=== PATIENT | male | born 1980 | race Hispanic/Latino ===

== ENCOUNTER 2025-01-30 02:21 | Emergency (ER) | payer OTHER ==
[~2025-01-30] VITALS: Ht 175.3 cm; Wt 76.4 kg
[2025-01-30] MEDS ORDERED: KETOROLAC TROMETHAMINE 15 MG/ML VIAL IV ONE (02:45)
[2025-01-30] MEDS ORDERED: CYCLOBENZAPRINE HCL 10 MG TAB PO ONE (02:45)
[2025-01-30] MEDS ORDERED: DIPHENOXYLATE/ATROPINE 1 EA TAB PO ONE (02:45)
[2025-01-30 02:50] LABS: BASOPHILS 0.3 % (0.2-1.2); EOSINOPHILS 0.1 % (0.8-7.0); LYMPHOCYTES 20.4 % (21.8-53.1); MCH 30.4 PG (25.7-32.2); MCHC 34.9 g/dL (32.3-36.5); MCV 87.0 fL (79.0-92.2); MONOCYTES 10.3 % (5.3-12.2); NEUTROPHILS 68.8 % (34.0-67.9); RBC 5.07 M/uL (4.63-6.08)
[2025-01-30 03:16] LABS: ALT (SGPT) 111.0 U/L (14-59); AST (SGOT) 62.0 U/L (15-37); GLOMERULAR FILTRATION RATE,EST 74.0 mL/min (>60); PROTEIN, TOTAL 8.4 g/dL (6.4-8.2); UREA NITROGEN 20.0 mg/dL (7-18)
[2025-01-30 03:26] LABS: INFLUENZA B NAA NEGATIVE (NEGATIVE); RESPIRATORY SYNCYTIAL VIR NAA NEGATIVE (NEGATIVE)
[2025-01-30] MEDS ORDERED: ONDANSETRON 4 MG HOME.PACK SL ONE (03:30)
[2025-01-30] MEDS ORDERED: CYCLOBENZAPRINE HCL 10 MG HOME.PACK PO ONE (03:30)
[2025-01-30] MEDS ORDERED: LOMOTIL TABLET1 EACH PO (03:33)
[2025-01-30] MEDS ORDERED: TAMIFLU75 MG PO (03:33)
[2025-01-30] MEDS ORDERED: ONDANSETRON ODT8 MG PO (03:33)
[2025-01-30] MEDS ORDERED: CYCLOBENZAPRINE10 MG PO (03:33)
[2025-01-30 03:53] VITALS: BP 122/90
== END 2025-01-30 03:56 | disposition home or self-care (01) ==
LOC: ED 02:21
PROVIDERS: Family Medicine
DX: J10.1 Influenza due to other identified influenza virus with other respiratory manifestations (principal); Z88.5 Allergy status to narcotic agent; Z88.8 Allergy status to other drugs, medicaments and biological substances
CPT/HCPCS: 36415; 80053; 83735; 85025; 87502; 96374; 96375; 99283-25; A9270; J1885; J2405; U0002